=== PATIENT | female | born 1995 | race Hispanic/Latino ===

== ENCOUNTER 2021-06-21 21:14 | Emergency (ER) | payer SELFPAY ==
[~2021-06-21] VITALS: Ht 160 cm; Wt 63.5 kg
[2021-06-21] MEDS ORDERED: MORPHINE SULFAT15 MG PO ×2 (22:26→23:38)
[2021-06-21] MEDS ORDERED: HYDROCODONE/APAP 5MG-325MG TAB ONE (22:43)
== END 2021-06-21 23:12 | disposition home or self-care (01) ==
LOC: ER 21:29
DX: S62.615A Displaced fracture of proximal phalanx of left ring finger, initial encounter for closed fracture (principal); W22.09XA Striking against other stationary object, initial encounter; Y92.008 Other place in unspecified non-institutional (private) residence as the place of occurrence of the external cause; F17.210 Nicotine dependence, cigarettes, uncomplicated
CPT/HCPCS: 99283